=== PATIENT | male | born 1955 | race Caucasian/White ===

== ENCOUNTER 2023-09-18 11:06 | Outpatient (REF) | payer OTHER, SELFPAY ==
[2023-09-18 13:20] LABS: MANUAL DIFF FLAG NO
[2023-09-18 13:32] LABS: Basophils Absolute Auto 0.1 X10*3/uL (0.0-0.2); Basophils Percent Auto 0.8 % (0-2); Eosinophils Absolute Auto 0.3 X10*3/uL (0.0-0.4); Eosinophils Percent Auto 3.2 % (0-4); Hemoglobin 15.5 g/dl (14.0-18.0); Imm Gran Abs Auto 0.04 X10*3/uL (0.00-0.03); Imm Gran Pct Auto 0.5 % (0.0-0.4); Lymphocytes Absolute Auto 1.9 X10*3/uL (1.2-4.9); Lymphocytes Percent Auto 22.5 % (20-40); Mean Corpuscular HGB Conc 34.4 g/dl (31.0-36.0); Mean Corpuscular Hemoglobin 29.1 pg (27.0-33.0); Mean Corpuscular Volume 84.4 fL (80.0-98.0); Mean Platelet Volume 9.9 fL (9.4-12.4); Monocytes Absolute Auto 0.9 X10*3/uL (0.1-1.2); Monocytes Percent Auto 10.1 % (2-11); Neutrophils Absolute Auto 5.3 x10*3/uL (2.0-8.3); Neutrophils Percent Auto 62.9 % (45-73); Platelet Count 265 X10*3/uL (160-400); Red Blood Count 5.33 X10*6/uL (4.60-5.80); Red Cell Distribution Width 12.5 % (11.0-16.0); White Blood Count 8.5 X10*3/uL (4.8-10.8)
[2023-09-18 13:38] LABS: Appearance Urine Clear; Color Urine Yellow; Glucose Urine UA Negative (Negative); Leukocyte Esterase Urine Negative (Negative); Nitrite Urine Negative (Negative); PH 5.5 (5.0-9.0); Specific Gravity - Urine <= 1.005 (1.005-1.025); Urine Blood Negative (Negative); Urine Ketones Negative (Negative); Urine Protein Negative (Neg-Trace)
[2023-09-18 13:55] LABS: Estimated Average Glucose 100 mg/dL; Hemoglobin A1c % 5.1 % (<6.0)
[2023-09-18 14:18] LABS: Alanine Aminotransferase 43 U/L (0-40); Albumin Level 4.5 g/dL (3.5-5.0); Alkaline Phosphatase 62 U/L (39-117); Anion Gap 14 (12-20); Aspartate Amino Transferase 36 U/L (5-37); Bilirubin Total 0.6 mg/dL (0.0-1.0); Blood Urea Nitrogen 19 mg/dL (9-16); Calcium 9.2 mg/dL (8.4-10.2); Carbon Dioxide 22 mmol/L (22-29); Chloride 105 mmol/L (96-108); Cholesterol 188 mg/dL (<200); Estimated Glomerular Filt Rate 57; Glucose Random 81 mg/dL (60-115); HDL Cholesterol 45 mg/dL (>40); LDL Cholesterol Calculated 119 mg/dL (<100); Potassium 3.4 mmol/L (3.3-5.1); Sodium 138 mmol/L (135-145); Total Protein 7.5 g/dL (6.5-8.0); Triglycerides 124 mg/dL (<150)
[2023-09-18 14:26] LABS: Prostate Specific Antigen 1.46 ng/mL (<0.05-4.0)
[2023-09-18 14:35] LABS: Thyroid Stimulating Hormone 1.64 uIU/mL (0.32-4.0)
== END 2023-09-18 11:07 | disposition home or self-care (01) ==
LOC: HO.HMGCLDS 11:06
PROVIDERS: PCP Internal Medicine; Visit Provider Internal Medicine
DX: Z12.5 Encounter for screening for malignant neoplasm of prostate (principal); E78.00 Pure hypercholesterolemia, unspecified; I10 Essential (primary) hypertension; R73.01 Impaired fasting glucose
CPT/HCPCS: 36415; 80053; 80061; 81003; 83036; 84153; 84443; 85025

== ENCOUNTER 2025-02-24 09:46 | Day surgery (SDC) | payer OTHER, SELFPAY ==
[2025-02-22 16:21] VITALS: BMI 30.8
--- NOTE | 2025-02-23 13:19 | P.CONAN_ITS ---
Documented by User: Nannette Townsend NP 02/23/25 13:19 HPI - Anesthesia Eval Consult details Narrative: 69yo M for Colonoscopy [facility] Past Medical History Medical History Arthritis HTN (hypertension) Surgical History Surgical History Hx of umbilical hernia repair Hx of colonoscopy Hx of bilateral inguinal hernia repair Social History Social History Are you a primary healthcare sales representative to a significant other at home: No Do you presently have visiting nurse or other home services: No Patient Tobacco Use Status: Former Tobacco user Have you been hit, kicked, punched, or otherwise hurt by someone within the past year? If so, by whom?: No Are you DNR?: No Advance Directives: No Advance Directives Information Provided: Yes Poor oral hygiene: No Meds Allergies Allergy/AdvReac Type Severity Reaction Status Date / Time doxycycline Allergy Unknown Unknown Verified 02/24/25 10:01 Home Medications ?Medication ?Instructions ?Recorded ?Confirmed ?Last Taken ?Type ibuprofen 200 mg tablet 200 mg PO Q8H PRN Pain 02/22/25 02/22/25 02/03/25 History valsartan 160 mg tablet 160 mg PO DAILY 02/22/25 02/22/25 02/24/25 History Exam Height,Weight and Vital Signs: Height 5 ft 11 in Weight 100.244 kg Assessment and Plan Assessment Anesthesia Assessment: Chart Reviewed Documented by User: Chiki Pulido MD 02/24/25 11:06 [facility] Past Medical History Medical History Arthritis HTN (hypertension) Cognitive capacity: good Functional capacity: independent ambulation Family History Family history of problems with anesthesia: No Surgical History Surgical History Hx of umbilical hernia repair Hx of colonoscopy Hx of bilateral inguinal hernia repair History of Problems with Anesthesia: No Social History Social History Are you a primary healthcare sales representative to a significant other at home: No Do you presently have visiting nurse or other home services: No Patient Tobacco Use Status: Former Tobacco user Have you been hit, kicked, punched, or otherwise hurt by someone within the past year? If so, by whom?: No Are you DNR?: No Advance Directives: No Advance Directives Information Provided: Yes Poor oral hygiene: No Meds Allergies Allergy/AdvReac Type Severity Reaction Status Date / Time doxycycline Allergy Unknown Unknown Verified 02/24/25 10:01 Home Medications ?Medication ?Instructions ?Recorded ?Confirmed ?Last Taken ?Type ibuprofen 200 mg tablet 200 mg PO Q8H PRN Pain 02/22/25 02/22/25 02/03/25 History valsartan 160 mg tablet 160 mg PO DAILY 02/22/25 02/22/25 02/24/25 History Exam Exam Date and Time: february 24, 2025 Airway Mallampati Class: II TM Dist: >3cm Neck ROM: Full Heart: rrr Lungs: cta Other: none Assessment and Plan Final Anesthetic Review Family History of Problems with Anesthesia: No History of Problems with Anesthesia: No
[2025-02-24 09:59] VITALS: BMI 30.1
[2025-02-24] MEDS: Lactated Ringers 1,000 ML 100 ML IVCONT (10:10)
[2025-02-24 10:11] VITALS: BP 146/88; PULSE 62; RESP 18; TEMP 36.8; O2SAT 97
[2025-02-24 12:07] VITALS: BP 112/75; PULSE 58; RESP 20; TEMP 36.6; O2SAT 96
--- NOTE | 2025-02-24 12:08 | PM.OP ---
Brief Operative Note Date of Service: 02/24/25 Pre-op diagnosis: Screening Post-op diagnosis: other (Colon polyps) Procedure: Colonoscopy to the cecum and TI with bx/removal of polyps Surgeon: Noel Douglas MD Anesthesia: MAC Was an Supply And Distribution Manager used for this Procedure?: No Estimated blood loss (mL): 2.0 Pathology: other (A. Polyp at 40cm B. Polyp at 20cm) Condition: stable Disposition: PACU
[2025-02-24 12:20] VITALS: BP 115/75; PULSE 57; RESP 16; TEMP 36.6; O2SAT 97
--- NOTE | 2025-02-24 12:34 | OP_ITS ---
DATE OF SERVICE: 02/24/2025 SURGEON: Noel Douglas MD INDICATIONS: The patient presents for evaluation of personal history of tubular adenoma of the colon and colorectal cancer screening. Full consent was obtained from him for this, including risks of bleeding and perforation. PREOPERATIVE DIAGNOSIS: POSTOPERATIVE DIAGNOSIS: PROCEDURE PERFORMED: Colonoscopy to cecum and terminal ileum with biopsy and removal of polyps. ESTIMATED BLOOD LOSS: COMPLICATIONS: ANESTHESIA: Medication used, monitored anesthesia care. ASSISTANTS: SPECIMENS: PREOPERATIVE DIAGNOSES: Colorectal cancer screening and personal history of tubular adenoma of the colon. POSTOPERATIVE DIAGNOSES: Colorectal cancer screening and personal history of tubular adenoma of the colon, colon polyps, diverticulosis, and internal hemorrhoids. DESCRIPTION OF PROCEDURE: The patient was placed in the left lateral decubitus position. The digital rectal exam revealed no abnormalities. The Olympus video pediatric colonoscope was entered into the rectum and advanced easily to the cecum. Once in the cecum I did identify normal-appearing cecal pouch with appendiceal orifice and a normal-appearing ileocecal valve. The terminal ileum was cannulated and appeared normal. Scope was withdrawn back in the colon. The entire cecum and ileocecal valve appeared normal. The scope was slowly withdrawn assessing all mucosal surfaces carefully. Preparation was excellent. At 20 cm and at 40 cm were flat, approximately 4 or 5 mm polyps, which were both biopsied and completely removed with cold biopsy forceps. I did not visualize any other polyps, colitis, or angiodysplasia. There was a mild amount of sigmoid diverticulosis. In the rectum, scope was retroflexed visualizing internal hemorrhoids, but no other pathology. The rectal mucosa appeared normal. Scope was straightened and withdrawn from the patient. He tolerated the procedure well and was returned to recovery area in stable condition. IMPRESSION: 1. Colon polyps 2. Internal hemorrhoids. PLAN: The results of biopsies will be checked. Given his history, I would recommend a repeat colonoscopy in 5 years for further screening and surveillance. He will otherwise see me on a p.r.n. basis. MD JANET Bermeo/LEXIE / [id number]
== END 2025-02-24 12:39 | disposition home or self-care (01) ==
PROVIDERS: PCP Internal Medicine; Visit Provider Internal Medicine
PROC: 0DJD8ZZ Inspection of Lower Intestinal Tract, Via Natural or Artificial Opening Endoscopic (ICD-10-PCS; CPT 45378; principal; 2025-02-24 11:10)
DX: Z12.11 Encounter for screening for malignant neoplasm of colon (principal); Z86.0101 Personal history of adenomatous and serrated colon polyps; D12.4 Benign neoplasm of descending colon; K63.5 Polyp of colon; K57.30 Diverticulosis of large intestine without perforation or abscess without bleeding; K64.8 Other hemorrhoids; I10 Essential (primary) hypertension; M16.10 Unilateral primary osteoarthritis, unspecified hip; Z79.1 Long term (current) use of non-steroidal anti-inflammatories (NSAID); Z79.899 Other long term (current) drug therapy; Z88.1 Allergy status to other antibiotic agents; Z98.890 Other specified postprocedural states; Z87.891 Personal history of nicotine dependence
CPT/HCPCS: 45380; 88305; J2003; J2704; J3010